=== PATIENT | male | born 1985 | race Caucasian/White ===

== ENCOUNTER → 2021-03-02 | Emergency (ER) | payer OTHER ==
[~2021-03-02] VITALS: Ht 188 cm; Wt 72.6 kg
== END | disposition left against medical advice (07) ==
LOC: ER 17:41
DX: B34.9 Viral infection, unspecified (principal); Z20.822 Contact with and (suspected) exposure to COVID-19

== ENCOUNTER 2021-03-04 12:51 | Emergency (ER) | payer OTHER ==
[~2021-03-04] VITALS: Ht 188 cm; Wt 72.6 kg
== END 2021-03-04 15:02 | disposition home or self-care (01) ==
LOC: ER 12:51
DX: B34.9 Viral infection, unspecified (principal); Z20.822 Contact with and (suspected) exposure to COVID-19